=== PATIENT | male | born 1995 | race Caucasian/White ===

== ENCOUNTER → 2018-09-07 11:18 | Outpatient (CLI) | payer BC, SELFPAY ==
[2018-09-07 14:33] LABS: Erythrocyte Sedimentation Rate 2 mm/hr (0-15)
[2018-09-07 14:35] LABS: Absolute Lymphocyte Count 2.51 X10^3/ul (0.83-4.51); Absolute Neutrophil Count 4.1 X10^3/uL (2.0-7.7); Basophil# 0.01 X10^3/uL; Basophil% 0.1 % (0-1); Eosinophil# 0.14 X10^3/uL; Eosinophils% 1.9 % (0-5); Hematocrit 50.6 % (40-54); Lymphocyte # 2.51 X10^3/ul (4.0); Lymphocyte % 34.5 % (19-41); Mean Corp Hgb Conc 33.6 g/gl (32-36); Mean Corpuscular Volume 86.3 fL (80-94); Mean Platelet Vol. 10.9 fl (6.2-12.0); Monocyte# 0.52 X10^3/uL; Monocyte% 7.2 % (0-10); Neutrophil # 4.08 X10^3/uL (2.7-7.7); Neutrophil % 56.2 % (47-70); POSITIVE COUNT NO; POSITIVE DIFFERENTIAL NO; POSITIVE MORPHOLOGY NO; Platelet Count 223 K/mm3 (150-450); RBC Distribution Width CV 13.2 % (11.6-14.6); RBC Distribution Width SD 41.5 fl (35.1-43.9); Red Blood Count 5.86 M/mm3 (4.6-6.2); White Blood Count 7.3 K/mm3 (4.4-11.0)
[2018-09-07 15:07] LABS: Anion Gap 6 (5-15); BUN 16 mg/dL (7-18); BUN/Creat Ratio 16.8 RATIO (10-20); Calcium,Total 8.8 mg/dL (8.5-10.1); Chloride 106 mmol/L (98-107); Creatinine, Serum 0.95 mg/dL (0.70-1.30); EST Glomerular Filtration Rate 105 mL/min (>60); Est Glom Filt Rate - Afr Amer 128 mL/min (>60); Glucose 70 mg/dL (74-106); Potassium 3.9 mmol/L (3.5-5.1); Sodium Level 141 mmol/L (136-145); Thyroid Stim Hormone (TSH) 0.76 uIU/mL (0.358-3.74)
== END ==
PROVIDERS: Family Provider Family Medicine; PCP Family Medicine; Referring Provider Family Medicine; Visit Provider Family Medicine
DX: R42 Dizziness and giddiness (principal); R59.9 Enlarged lymph nodes, unspecified
CPT/HCPCS: 36415; 80048; 84443; 85025; 85652

== ENCOUNTER → 2018-09-14 17:52 | Outpatient (CLI) | payer BC, SELFPAY ==
--- NOTE | 2018-09-14 18:15 | MRI_ITS ---
STUDY: MRI BRAIN WITH AND WITHOUT CONTRAST REASON FOR EXAM: Male, 22 years old. Headaches and dizziness with blurred vision and left skull base lump for 2 months TECHNIQUE: Standardized multiplanar fat and water weighted pulse sequences were obtained. 20 IV Dotarem was administered for the contrast portion of the examination. COMPARISON: CT 09/30/2016 FINDINGS: Normal size of the ventricles and extra-axial spaces for the patient's age. Normal white matter tracts of the supratentorial brain. Normal bilateral basal ganglia. Normal thalami. There is no extra-axial fluid accumulation. Normal flow voids within the major intracranial circulation suggesting patency by spin echo criteria. Normal venous enhancement. There is no enhancing intra-axial or extra-axial abnormality. Normal sella turcica, pituitary gland, infundibular stalk, optic chiasm and hypothalamus. Normal tectal plate and pineal gland. Normal midbrain, rahel and medulla. Normal cerebellum. Normal basal cisterns. Normal bilateral temporal bones. Normal bilateral internal auditory canals. No demonstrated orbital abnormality, within the constraints of a routine brain study. Normal visualized paranasal sinuses. Normal calvarium and skull base. Normal visualized soft tissue structures. Normal visualized upper cervical spine. MRI/Brain W/WO Contrast IMPRESSION: Normal unenhanced and enhanced MRI of the brain. Electronically Signed: Carlito Edwards MD at 19:54 EDT Tel , Service support ,
== END ==
PROVIDERS: Family Provider Family Medicine; PCP Family Medicine; Referring Provider Family Medicine; Visit Provider Family Medicine
DX: R51 Headache (principal)
CPT/HCPCS: 70553; A9575

== ENCOUNTER 2018-11-21 12:00 | Outpatient (RCR) | payer BC, SELFPAY ==
--- NOTE | 2018-10-17 08:02 | HP.PTEVAL_ITS ---
Patient's Visit Information ALDO RIVAS is a 22 year old M referred to Physical Therapy by Emeterio Higginbotham MD with a diagnosis of Neck pain and JEFFERSON's. Date of Evaluation: 10/17/18 Physical Therapist: Dg Puri PT, ATC - Visit Plan Frequency: 2x /Week Duration: 2-4 Weeks Plan: Postural education, cervical retraction ex's, DTR, scap stab ex's, and HEP - Subjective Findings: Pt reports he has been getting JEFFERSON's and occasional dizziness for the past month. Pt notes 1 1/2 years ago, he had major lumbar spine surgery, and he believes he developed his neck pain from guarding his LB all the time. No tingling or numbness in his UE's. Occasional sleep difficulty secondary to neck pain. Pt reports he developed a lump in his neck and after receiving many scans and x rays, it is believed to be significant muscle guarding. Pt reports his JEFFERSON's originate in the neck and base of his skull and radiate toward the front of his head. massage will help to alleviate his symptoms. Pt reports his pain 2/10 at rest and describes it more as stiff. Neck pain increases to 7/10 at worst. - Pain Neck pain Pain Intensity (Out of 10): 2 Pain Intensity Range: 7 - Objective Neuro: B UE sensation is WNL to light touch. B bicepital reflex= 2/3. Palpation: Pt has significant guarding throughout his cervical spine. No obvious deformity in cervical spine noted. MMT: B UE's are rated at 5/5 throughout. ROM: C/S ROM is WNL in all planes except retraction which is minimally limited. Repeated movements: RPIS 10x3 NE. RRIS 10x3 decreased pain, produced floaters in his L eye - Goals Goal 1:: Decrease neck pain x 50% to aid with sleep Goal Time Frame: 2-4 Weeks Goal 2:: Increase cervical spine retraction ROM to WNL to aid with decreasing neck pain Goal Time Frame: 2-4 Weeks Goal 3:: Decrease the frequency and intensity of JEFFERSON's x 50% to aid with tolerance of IADL's Goal Time Frame: 2-4 Weeks Goal 4:: I with HEP Goal Time Frame: 2-4 Weeks - Rehabilitation Potential Physical Therapy Diagnosis: Pt has neck pain, Jefferson's, and difficulty with sleep secondary to cervical spine derrangement Rehabilitation Potential: Good - Anticipated Interventions Patient/Client Instruction: Educate patient on: Condition, Plan of Care For the Purpose of:: To improve self management Therapeutic Exercise to Include: Strength training, Body mechanics, Postural tr aining, Active ROM, Scapular Strength/Stabilization For the Purpose of:: To decrease pain, To increase ROM, To improve muscle performance and motor function Manual Therapy Techniques to Include: Soft tissue mobilization For the Purpose of:: To decrease pain Thermo therapy (hot pack): Yes For the Purpose of:: To decrease pain Thank you for the opportunity to evaluate your patient. For Medicare and Medicare HMO plans, please review the plan of care and approve it. It will need to be FAXED BACK to us at [phone] for Medicare purposes. For Medicare only, by signing this I certify the plan of care. Please let me know if there are questions or concerns regarding this plan of care. Physician Signature: Date:
--- NOTE | 2019-03-06 12:59 | HP.PT.NRP ---
HP - Discharge Summary (1) - Patient Information ALDO RIVAS was seen in my office for initial evaluation on 10/17/18. The following Plan of Care was established for this patient: Initial Frequency: 2x /Week Initial Duration: 2-4 Weeks - Anticipated Interventions Patient/Client Instruction: Educate patient on: Condition, Plan of Care For the Purpose of:: To improve self management Therapeutic Exercise to Include: Strength training, Body mechanics, Postural training, Active ROM, Scapular Strength/Stabilization For the Purpose of:: To decrease pain, To increase ROM, To improve muscle performance and motor function Manual Therapy Techniques to Include: Soft tissue mobilization For the Purpose of:: To decrease pain Thermo therapy (hot pack): Yes For the Purpose of:: To decrease pain This patient was last seen in our office . Pertinent comments regarding their Physical therapy will appear below: Pt was treated for 6 PT visits for his neck pain through the date of 11/21/18. Pt has not returned through todays date and is therefore discontinued at this time. At this point I will be discontinuing this patient from physical therapy. I would be happy to see this patient again in the future if found appropriate by the physician. Thank you! Dg Puri, PT, ATC
== END 2018-11-21 19:00 | disposition home or self-care (01) ==
LOC: PT 12:00
PROVIDERS: Family Provider Family Medicine; PCP Family Medicine; Visit Provider Family Medicine
DX: M54.2 Cervicalgia (principal); R51 Headache; R42 Dizziness and giddiness
CPT/HCPCS: 97014; 97110; 97140; 97161; G0283

== ENCOUNTER → 2019-04-05 | Outpatient (CLI) | payer BC, SELFPAY ==
--- NOTE | 2019-04-05 12:11 | RAD_ITS ---
STUDY: X-RAY - LUMBAR SPINE REASON FOR EXAM: Male, 23 years old. Lumbar fusion 2 years ago, now with low back pain. TECHNIQUE: 5 view(s) of the lumbar spine were obtained. COMPARISON: None FINDINGS: Normal lumbar lordosis. There is no substantial scoliosis. There is a normal alignment of the vertebrae. The patient is status post posterior fusion with transpedicular screws and disc prosthesis at L5-S1. Normal vertebral bodies and endplates. Mild narrowing of disc space at L4-L5, remainder of disc space heights within normal limits. There is no demonstrated fracture. There is no demonstrated spondylolysis of the pars interarticulares. The soft tissue structures are unremarkable. RAD/L/S Spine Min 4 Views IMPRESSION: Postoperative changes as described above, otherwise unremarkable x-ray examination of the lumbar spine. Electronically Signed: Che Skelton MD at 0:47 EDT , Service support ,
--- NOTE | 2019-04-05 12:11 | RAD_ITS ---
STUDY: X-RAY - SACROILIAC JOINTS REASON FOR EXAM: Male, 23 years old. Lumbar fusion 2 years ago, now with low back pain. TECHNIQUE: 3 view(s) of the sacroiliac joints were obtained. COMPARISON: None. FINDINGS: Normal bilateral sacroiliac joints. Normal visualized sacral ala and sacrum. There is no demonstrated fracture. Postoperative changes with posterior fusion at L5-S1 noted. Normal visualized iliac bones. Normal visualized soft tissue structures. RAD/S-I Jts 3 or More Views IMPRESSION: Posterior fusion at L5-S1. No distinct fracture, remainder of the bony structures are unremarkable. Electronically Signed: Che Skelton MD at 0:46 EDT , Service support ,
== END | disposition home or self-care (01) ==
LOC: MTRAD 12:10
PROVIDERS: Family Provider Family Medicine; PCP Family Medicine; Referring Provider Family Medicine; Visit Provider Family Medicine
DX: Z98.1 Arthrodesis status (principal)
CPT/HCPCS: 72110; 72202

== ENCOUNTER 2021-07-01 09:10 | Outpatient (CLI) | payer BC, SELFPAY ==
[2021-07-01 10:01] LABS: Absolute Lymphocyte Count 1.51 X10^3/uL (0.83-4.51); Absolute Neutrophil Count 2.2 X10^3/uL (2.0-7.7); Basophil# 0.01 X10^3/uL; Basophil% 0.2 % (0-1); Eosinophil# 0.09 X10^3/uL; Eosinophils% 2.1 % (0-5); Hematocrit 47.7 % (40-54); Hemoglobin 16.3 g/dL (13.0-16.5); Lymphocyte # 1.51 X10^3/ul (0.83-4.51); Lymphocyte % 35.8 % (19-41); Mean Corp Hgb Conc 34.2 g/dL (32-36); Mean Corpuscular Hgb 28.6 pg (27.0-32.0); Mean Corpuscular Volume 83.8 fL (80-94); Mean Platelet Vol. 10.3 fl (6.2-12.0); Monocyte# 0.43 X10^3/uL; Monocyte% 10.2 % (0-10); NRBC Flagged by Analyzer 0 % (0-5); Neutrophil # 2.17 X10^3/uL (2.7-7.7); Neutrophil % 51.5 % (47-70); Platelet Count 238 K/mm3 (150-450); RBC Distribution Width CV 12.9 % (11.6-14.6); RBC Distribution Width SD 39.3 fl (35.1-43.9); RET-HE 33.4 pg (30-35); Red Blood Count 5.69 M/mm3 (4.6-6.2); Reticulocyte Count 0.97 % (0.5-1.5); White Blood Count 4.2 K/mm3 (4.4-11.0)
[2021-07-01 10:32] LABS: Anion Gap 6 (5-15); BUN 15 mg/dL (7-18); BUN/Creat Ratio 15.7 RATIO (10-20); Calcium,Total 9.3 mg/dL (8.5-10.1); Chloride 107 mmol/L (98-107); Creatinine, Serum 0.96 mg/dL (0.70-1.30); EST Glomerular Filtration Rate 102 mL/min (>60); Est Glom Filt Rate - Afr Amer 124 mL/min (>60); Ferritin 360 ng/mL (26-388); Glucose 78 mg/dL (74-106); Iron 112 ug/dL (65-175); Iron Binding Capacity,Total 360 ug/dL (250-450); PERCENT IRON SATURATION 31.1 % (15.0-55.0); Potassium 3.9 mmol/L (3.5-5.1); Sodium Level 141 mmol/L (136-145)
== END 2021-07-01 23:59 | disposition short-term general hospital (02) ==
LOC: MFPLAB 09:12
PROVIDERS: PCP Family Medicine; Referring Provider Family Medicine; Visit Provider Family Medicine
DX: Z13.1 Encounter for screening for diabetes mellitus (principal); D75.1 Secondary polycythemia
CPT/HCPCS: 36415; 80048; 82728; 83540; 83550; 85025; 85045

== ENCOUNTER → 2021-10-06 | Outpatient (CLI) | payer BC, SELFPAY ==
--- NOTE | 2021-10-06 12:48 | RAD_ITS ---
STUDY: X-RAY - LUMBAR SPINE REASON FOR EXAM: Male, 25 years old. LOW BACK PAIN LUMBAR recent pain last couple months back surgery several yrs ago TECHNIQUE: XR Spine Lumbar Comp W/ Bending Min 6 Views COMPARISON: 04.05.19 FINDINGS: Normal lumbar lordosis. There is no substantial scoliosis. There is a normal alignment of the vertebrae. Normal vertebral bodies and endplates. Normal disc space heights. Spinal fusion hardware noted. Disc spacer in place. The soft tissue structures are unremarkable. RAD/L/S Spine w Bend Min 6 Vw IMPRESSION: There are no acute findings. Electronically Signed: Dg Wynn MD at 16:05 EDT ,
== END | disposition home or self-care (01) ==
LOC: MTRAD 12:46
PROVIDERS: PCP Family Medicine; Referring Provider Family Medicine; Visit Provider Family Medicine
DX: M54.16 Radiculopathy, lumbar region (principal)
CPT/HCPCS: 72114

== ENCOUNTER 2021-10-26 15:30 | Outpatient (RCR) | payer BC, SELFPAY ==
--- NOTE | 2021-10-19 14:06 | HP.PTEVAL ---
Patient's Visit Information ALDO RIVAS is a 25 year old M referred to Physical Therapy by Dr. Tommy Coffey MD with a diagnosis of LBP with L LE radiculopathy L2. Date of Evaluation: 10/19/21 Physical Therapist: Dg Puri, PT, ATC - Visit Plan Frequency: 1x/Week Duration: 1-2 weeks Plan: Issue and instruct pt on a HEP of core strengthening and REIL on next visit - Subjective Pt reports this episode of LBP started 2-3 weeks ago. Pt reports he has had an injection a week ago which did help with his pain, but the L hip pain radiates into L groin. Pt reports he has had x-rays which reveled no bulging at this time, but notes he continues to have sharp pain in the LB when he bends forward or sits for a long period of time. Pt notes he has been stretching his LB and L hip to help with the pain, but they are ineffective at this time. Pt also notes OTC drugs have been ineffective too at this time. Pt reports his radicular sx's extend to the mid hamstring at this time, and is only in the L LE. Pt reports sleep difficulty at this time secondary to pain if he doesn't take his gabapentin. Pt reports he has been working out a lot and would like to get back to that without limitation. Pt reports his LBP 6/10 pain at rest, but notes his pain drops to 2/10 with standing. - Pain LBP Pain Intensity (Out of 10): 6 Pain Intensity Range: 2 - Objective Neuro: B LE sensation is WNL to light touch. B patellar reflex= 2/3. MMT: B LE's 5/5 throughout with no limitations. ROM: Fwd flexion and R SB are minimally limited and result in increased pain. ext and L SB are WNL. Repeated movements: RFIS peripheralized sx's into L HS region. REIL 10x3 centralized sx's - Balance/Special Test Scores Oswestry Low Back Score: 18 - Goals Goal 1:: I with HEP of core strengthening after 1-2 visits Goal Time Frame: 2-4 Weeks - Rehabilitation Potential Physical Therapy Diagnosis: Pt has LBP and L LE radiculopathy secondary to L/S disc derangement Rehabilitation Potential: Excellent - Anticipated Interventions Patient/Client Instruction: Educate patient on: Condition, Plan of Care For the Purpose of:: To improve self management Therapeutic Exercise to Include: Strength training, Dynamic Lumbar Stabilization, Tiffanie Exercises For the Purpose of:: To decrease pain, To increase ROM, To improve muscle performance and motor function Thank you for the opportunity to evaluate your patient. For Medicare and Medicare HMO plans, please review the plan of care and approve it. It will need to be FAXED BACK to us at [phone] for Medicare purposes. For Medicare only, by signing this I certify the plan of care. Please let me know if there are questions or concerns regarding this plan of care. Physician Signature: Date:
--- NOTE | 2021-12-08 07:42 | HP.PT.NRP ---
ALDO MING RIVAS was seen in my office for initial evaluation on 10/19/21. The following Plan of Care was established for this patient: Initial Frequency: 1x/Week Initial Duration: 1-2 weeks Patient/Client Instruction: Educate patient on: Condition, Plan of Care For the Purpose of:: To improve self management Therapeutic Exercise to Include: Strength training, Dynamic Lumbar Stabilization, Tiffanie Exercises For the Purpose of:: To decrease pain, To increase ROM, To improve muscle performance and motor function This patient was last seen in our office . Pertinent comments regarding their Physical therapy will appear below: Pt was treated for 2 PT visits for LBP through the date of 10/26/21. Pt has not returned through todays date, and is discontinued at this time. At this point I will be discontinuing this patient from physical therapy. I would be happy to see this patient again in the future if found appropriate by the physician. Thank you! Dg Puri, PT, ATC Balance/Gait/Functional tests - Balance/Special Test Scores Oswestry Low Back Score: 18
== END 2021-10-26 19:00 | disposition home or self-care (01) ==
LOC: PT 15:30
PROVIDERS: PCP Family Medicine; Referring Provider Family Medicine; Visit Provider Family Medicine
DX: M54.16 Radiculopathy, lumbar region (principal)
CPT/HCPCS: 97110; 97161

== ENCOUNTER 2023-12-06 11:50 | Emergency (ER) | payer OTHER, SELFPAY ==
[2023-12-06 11:50] VITALS: BP 154/82; PULSE 71; RESP 20; TEMP 35.8; O2SAT 100
--- NOTE | 2023-12-06 13:10 | CT_ITS ---
STUDY: CT ABDOMEN AND PELVIS WITHOUT CONTRAST REASON FOR EXAM: Male, 28 years old. Back and flank pain following a twisting injury. RADIATION DOSAGE (If Supplied By Facility): CTDIvol = ( 10.83 ) mGy, DLP = ( 547.24 ) mGycm TECHNIQUE: Transaxial images were obtained from the dome of the diaphragm to the symphysis pubis without oral contrast, and without intravenous contrast. Sagittal and coronal images were reconstructed. Individualized dose optimization techniques were used for this CT. COMPARISON: None. FINDINGS: The visualized lung bases are unremarkable. The visualized portions of the heart are within normal limits. Normal liver. Normal gallbladder and extrahepatic biliary system. Normal spleen. Normal pancreas. Normal bilateral adrenal glands. Normal right kidney. Normal left kidney. Normal visualized stomach. Normal small intestine. Normal colon. The appendix is visualized and appears normal. Normal abdominal aorta. Normal inferior vena cava. There is a small retroperitoneal lymphadenopathy with enlarged nodes no greater than 10mm in the short axis diameter. Normal urinary bladder. Normal abdominal wall. There is evidence of prior intrapedicular screw and moriah fixation and disc placement at the L5-S1 level. CT/Abdomen/Pelvis without Cont IMPRESSION: No acute abnormality is seen. Electronically Signed: Braydon Knight MD at 14:17 EDT ,
--- NOTE | 2023-12-06 13:10 | EDS_ITS ---
HPI History of Present Illness Chief Complaint: Back Informant: patient Onset/Context/Timing Onset: Yesterday Context: Gradual Onset Injury: twisting Timing: Continuous Quality: Dull and Throbbing Location: Lumbar Current Severity: Severe Maximum Severity: Severe Worsened by: improves with Movement (Lifting his legs) and Bending Relieved by: Nothing Associated Symptoms Associated Symptoms: Abdominal Pain; Negative for Numbness, Tingling, Radiation to Right Leg, Radiation to Left Leg, Fever, Dysuria, Unable to Ambulate, Unable to Transfer, Urinary Retention, Urinary Incontinence, Constipation or Fecal Inco ntinence Narrative Narrative: Patient presents with back pain that began yesterday. Patient states he was playing softball and twisted. Patient states that he felt something in his back at that time. Patient states he was able to continue to play. Patient states that last night it started to get worse. Patient states that it became severe today. Patient states he tried to do some stretching exercises but was unable to tolerate that. Patient denies any radiation of the pain to his legs. Patient states the pain does radiate to his lower abdomen. Patient denies any bowel or bladder changes. Patient denies any saddle anesthesia. Patient denies any paresthesias or weakness. [facility] Medical History Ankle tendinitis Back pain Migraine Shoulder pain Home Medications ?Medication ?Instructions ?Recorded ?Last Taken ?Type hydrocodone-acetaminophen 5-325mg 1 tab PO Q6H PRN PRN Pain 3 days 12/06/23 Unknown Rx 5mg-325mg #10 TABLETS Allergy/AdvReac Type Severity Reaction Status Date / Time No Known Allergies Allergy Verified 02/22/19 07:39 Surgical History History of spinal fusion Social History Smoking Status: Never smoker alcohol intake: current alcohol intake frequency: a few times a week Alcohol type: hard liquor ROS ROS ED Constitutional Constitutional ED: Denies chills or fever(s) Eyes Eyes: Denies blurry vision or change in vision ENT ENT ED: Denies rhinorrhea or sore throat Cardiovascular Cardiovascular: Denies chest pain or palpitations Respiratory/Chest Respiratory/Chest: Denies cough or dyspnea Gastrointestinal Gastrointestinal: Reports abdominal pain; Denies nausea or vomiting Genitourinary Genitourinary ED: Denies dysuria or hematuria Musculoskeletal Musculoskeletal: Reports back pain; Denies neck pain Integumentary Denies abscess or rash Neurologic Neurologic: Denies headache(s) or weakness Allergic/Immunologic Allergic/Immunologic ED: Denies mouth swelling or urticaria EXAM Physical Exam Const Vital Signs: 12/06/23 11:50 12/06/23 13:50 Temperature 96.5 F L Temperature Source Temporal Pulse Rate 71 70 Respiratory Rate 20 H 16 Blood Pressure 154/82 H 140/68 H Blood Pressure Mean 106 92 Pulse Ox 100 99 Oxygen Delivery Method Room Air Positive well nourished and well developed General Appearance ED: well developed and NAD HEENT Reports moist mucous membranes Neck supple and no JVD GI soft to palpation and non-distended Palpation: tender RLQ Back/Spine Back/Spine Narrative: There is tenderness over the lumbar spine and right lumbar paraspinal muscles. There is no bony crepitance or step-off. There is no deformity noted. Range of motion was limited in all motions of the lumbar spine secondary to pain. Straight leg raises causes pain in his back but there is no radicular pain with this. Strength is 5/5 bilaterally in the lower extremities. There are no sensory deficits noted. Deep tendon reflexes are 2/4 bilaterally. Lumbar Spine / Lower Back: ROM limited and straight leg raise negative bilaterally Extremity normal to inspection General Extremety ED: Negative for edema or tenderness General Extremity: Negative for edema Neuro oriented x3 and no sensory deficits noted Sensorium / Orientation: alert Motor Exam: strength 5/5 throughout Deep Tendon Reflexes: Rt Patellar (L4): 2+, Lt Patellar (L4): 2+, Rt Ankle (S1): 2+ and Lt Ankle (S1): 2+ Deep Tendon Reflexes Back: Rt Patellar (L4): 2+, Lt Patellar (L4): 2+, Rt Ankle (S1): 2+ and Lt Ankle (S1): 2+ Psych mental status grossly normal MDM MDM MDM Narrative Medical decision making narrative: Differential diagnosis includes lumbosacral strain, spondylolisthesis, spondylolysis, ureteral calculus, inguinal hernia, and urinary tract infection. CBC will be obtained to assess for leukocytosis and anemia. Basic metabolic profile will be obtained to assess for electrolyte abnormality and renal function. Urinalysis will be obtained to assess for urinary tract infection and hematuria. CT scan of the abdomen and pelvis will be obtained to assess for spondylolisthesis, ureteral calculus, inguinal hernia, and perforated bowel. Lab Data Attestation: I reviewed the patient's lab results. Lab results narrative: CBC was reviewed and was within normal limits. Basic metabolic profile was reviewed and was within normal limits. Urinalysis was reviewed. There is no evidence of urinary tract infection or hematuria. Labs: Laboratory Results - last 24 hr 12/06/23 12/06/23 13:30 13:35 WBC 7.8 RBC 5.89 Hgb 17.0 H Hct 50.9 MCV 86.4 MCH 28.9 MCHC 33.4 RDW Std Deviation 41.1 RDW Coeff of [place] 13.1 Plt Count 212 MPV 9.9 Immature Gran % (Auto) 0.300 Neut % (Auto) 63.5 Lymph % (Auto) 28.0 [place] % (Auto) 6.9 Eos % (Auto) 1.0 Baso % (Auto) 0.3 Absolute Neuts (auto) 5.0 Absolute Lymphs (auto) 2.19 Nucleated RBC % 0 Sodium 142 Potassium 3.7 Chloride 107 Carbon Dioxide 28.0 Anion Gap 7 BUN 14 Creatinine 1.09 Est GFR (MDRD) Af Amer 104 Est GFR (MDRD) Non-Af 86 BUN/Creatinine Ratio 12.8 Glucose 88 Calcium 9.3 Urine Color Yellow Urine Clarity Clear Urine pH 7.0 Ur Specific [place] 1.010 Urine Protein Negative Urine Glucose (UA) Normal Urine Ketones Negative Urine Occult Blood Negative Urine Nitrite Negative Urine Bilirubin Negative Urine Urobilinogen Normal Ur Leukocyte Esterase Negative Urine RBC 0 SEEN Urine WBC 0 SEEN Ur Squamous Epith Cells 0 SEEN Urine Bacteria 0 SEEN Urine Mucus 0 SEEN Radiography Diagnostic Testing: Clinical Impression(s) from Imaging Studies Abdomen/Pelvis CT 12/06/23 13:10 IMPRESSION: No acute abnormality is seen. Electronically Signed: Braydon Knight MD at 14:17 EDT , CT scan of the abdomen and pelvis was obtained. There is no acute abnormality noted. There is no ureteral calculus noted. There is no loosening of the pedicle screw. This was interpreted by the radiologist was also dependently reviewed by myself. Treatment and Re-Evaluation Narrative: Patient was given a dose of Toradol here. Patient had minimal relief with this. Patient was given injection of morphine. Patient was advised of his findings. Patient was given a prescription for a short course of Miller. Patient was instructed to follow-up with his spine surgeon and primary care physician in 5 to 7 days. Patient was instructed to return if worse in any way. Patient understood and was agreeable with the plan. All questions were answered. Discharge Plan Triage Chief Complaint: Back ED Provider: Cesar Pennington Dx/Rx/DC Orders Clinical Impression: Acute low back pain, Acute lumbosacral myofascial strain Instructions: ED Back Pain (Acute or Chronic), ED Back Sprain/Strain Prescriptions: New hydrocodone-acetaminophen 5-325 mg tablet 1 tab PO Q6H PRN PRN (Reason: Pain) 3 Days Qty: 10 0RF Primary Care Provider: Otto Coffey Referrals: Otto Coffey MD [Primary Care Provider] - Print Language: Turkmen Disposition Disposition: Home, Self Care
[2023-12-06] MEDS: Ketorolac 30 MG/ML Syringe IV (13:47)
[2023-12-06] MEDS: 0.9% Normal Saline (1000mL) 1,000 ML 1000 ML IV (13:48)
[2023-12-06 13:50] VITALS: BP 140/68; PULSE 70; RESP 16; O2SAT 99
[2023-12-06 14:03] LABS: Absolute Lymphocyte Count 2.19 X10^3/uL (0.83-4.51); Basophil# 0.02 X10^3/uL; Basophil% 0.3 % (0-1); Eosinophil# 0.08 X10^3/uL; Hematocrit 50.9 % (40-54); Lymphocyte # 2.19 X10^3/ul (0.83-4.51); Mean Corp Hgb Conc 33.4 g/dL (32-36); Mean Corpuscular Hgb 28.9 pg (27.0-32.0); Mean Corpuscular Volume 86.4 fL (80-94); Mean Platelet Vol. 9.9 fl (6.2-12.0); Monocyte# 0.54 X10^3/uL; Monocyte% 6.9 % (0-10); NRBC Flagged by Analyzer 0 % (0-5); Neutrophil # 4.97 X10^3/uL (2.7-7.7); Neutrophil % 63.5 % (47-70); Platelet Count 212 K/mm3 (150-450); RBC Distribution Width CV 13.1 % (11.6-14.6); RBC Distribution Width SD 41.1 fl (35.1-43.9); Red Blood Count 5.89 M/mm3 (4.6-6.2); White Blood Count 7.8 K/mm3 (4.4-11.0)
[2023-12-06 14:04] LABS: Bacteria 0 SEEN /hpf (None Seen); Mucous, Urine 0 SEEN /hpf (<or=2+); Red Blood Cells-Urine 0 SEEN /hpf (0-5); Squamous Epithelial Cells - UA 0 SEEN /hpf (0-5); White Blood Cells 0 SEEN /hpf (0-5)
[2023-12-06 14:06] LABS: Color, Urine Yellow (Yellow); Glucose, Dipstick Normal (Normal); Ketone-Dipstick Negative (Negative); Leukocyte Esterase-Dipstick Negative /ul (Negative); Nitrite-Dipstick Negative (Negative); Occult Blood-Urine Negative /ul (Negative); Protein-Dipstick Negative (Negative); Urine Bilirubin Dipstick Negative (Negative); Urine Clarity Clear (Clear); Urine Urobilinogen Normal (Normal)
[2023-12-06 14:23] LABS: Anion Gap 7 (5-15); BUN 14 mg/dL (7-18); BUN/Creat Ratio 12.8 RATIO (10-20); Calcium,Total 9.3 mg/dL (8.5-10.1); Chloride 107 mmol/L (98-107); Creatinine, Serum 1.09 mg/dL (0.70-1.30); EST Glomerular Filtration Rate 86 mL/min (>60); Est Glom Filt Rate - Afr Amer 104 mL/min (>60); Glucose 88 mg/dL (74-106); Potassium 3.7 mmol/L (3.5-5.1); Sodium Level 142 mmol/L (136-145)
[2023-12-06] MEDS: Morphine 4 MG/ML Syringe IV (14:53)
[2023-12-06 14:58] VITALS: BP 132/74; PULSE 78; RESP 18; TEMP 36.6; O2SAT 99
== END 2023-12-06 15:00 | disposition home or self-care (01) ==
PROVIDERS: Emergency Provider Emergency Medicine; PCP Family Medicine; Visit Provider Emergency Medicine
DX: S39.012A Strain of muscle, fascia and tendon of lower back, initial encounter (principal); R10.9 Unspecified abdominal pain; X50.1XXA Overexertion from prolonged static or awkward postures, initial encounter; Y93.64 Activity, baseball
CPT/HCPCS: 74176; 80048; 81001; 85025; 96361; 96374; 96375; 99283; J7030; A4216